=== PATIENT | female | born 1930 | race Caucasian/White ===

== ENCOUNTER 2017-09-20 16:29 | Inpatient (IN) | payer OTHER ==
[~2017-09-20] VITALS: Ht 157.5 cm; Wt 71.7 kg
[~2017-09-20 16:29] MED LIST: ASPI-1169 PO; ATOR20TA PO; BENA10TA PO; CARB1TAB53 PO; DILT180C66 PO; DIVA125T2 PO; ERGO500014 PO; LEVO25TA11 PO; LEVO75TA PO; PARO10TA86 PO; SERT100T PO; TOPI25CA PO
--- NOTE | 2017-09-20 16:30 | NUR ---
KATE FROM [facility] ALTERED MENTAL STATUS AND SEVERE RESPIRATORY DISTRESS. PATIENT RECEIVED ON NON REBREATHER SATING 95%. PATIENT'S SKIN IS WARM TO TOUCH AND NON DIAPHORETIC. FEBRILE. CONNECTED PATIENT TO TELE MONITOR. RAY AT BEDSIDE
--- NOTE | 2017-09-20 16:32 | NUR ---
PATIENT WITH AUDIBLE RALES AND CRACKLES. MD ASHER
--- NOTE | 2017-09-20 16:35 | NUR ---
PER REPORT PT IS DNR/DNI RT AT FOR BIPAP
--- NOTE | 2017-09-20 16:41 | NUR ---
IV ACCESSED TO RIGHT WRIST 20. BLOOD SAMPLE SENT TO LAB
[2017-09-20 16:43] VITALS: BP 97/72
[2017-09-20 17:00] LABS: BASOPHILS % (AUTO) 0.3 % (0.0-2.0); EOSINOPHILS % (AUTO) 0.4 % (0.0-6.0); HEMATOCRIT 42 % (33-45); HEMOGLOBIN 14.1 g/dL (11.5-14.8); LYMPHOCYTES # (AUTO) 1.4 /CMM (0.8-4.8); LYMPHOCYTES % (AUTO) 8.8 % (20.0-44.0); MEAN CORPUSCULAR HGB CONC 33 g/dl (31.0-36.0); MEAN CORPUSCULAR VOLUME 89 fL (82-100); MONOCYTES # (AUTO) 0.9 /CMM (0.1-1.30); MONOCYTES % (AUTO) 5.5 % (2.0-12.0); NEUTROPHILS # (AUTO) 13.9 /CMM (1.8-8.9); PLATELET COUNT (AUTO) 168 /CMM (150-450); RDW COEFFICIENT OF VARIATION 14.2 (11.5-15.0); RED BLOOD CELL COUNT(AUTO) 4.75 MIL/uL (4.0-5.2); WHITE BLOOD COUNT (AUTO) 16.3 K/uL (4.3-11.0)
[2017-09-20] MEDS ORDERED: PIPERACILLIN /TAZOBACTAM 3.375 G in IV D5W 50 ML IV ONE (17:00)
[2017-09-20] MEDS ORDERED: IV NS 0.9% 1,000 ML BAG IV ONE (17:00)
[2017-09-20] MEDS ORDERED: VANCOMYCIN 1 GM in IV D5W 250 ML IV ONE (17:00)
[2017-09-20 17:18] LABS: INR 0.9 (0.85-1.15)
[2017-09-20 17:20] LABS: TROPONIN I 0.754 ng/mL (0.00-0.056)
[2017-09-20] MEDS ORDERED: ASPIRIN 300 MG/SUPP.RECT RC ONE ×2 (17:30→17:40)
[2017-09-20 17:33] LABS: BACTERIA,URINE 4+ /HPF (None Seen); SQUAMOUS EPITHELIAL CELL,UR None Seen /HPF (None Seen)
[2017-09-20 17:52] LABS: APPEARANCE,URINE CLOUDY (CLEAR); COLOR,URINE YELLOW (YELLOW); PH,URINE 8.5 (5.0-8.0); PROTEIN,URINE 3+ mg/dl (NEGATIVE); UGLUCOSE NEGATIVE (NEGATIVE)
[2017-09-20 17:53] LABS: BILIRUBIN,URINE NEGATIVE (NEGATIVE); KETONES,URINE NEGATIVE (NEGATIVE); NITRITE, URINE NEGATIVE (NEGATIVE); UROBILINOGEN,URINE 0.2 EU/dL (0.2)
[2017-09-20] MEDS ORDERED: DILT90TA2 PO (17:53)
[2017-09-20] MEDS ORDERED: DOCU-141 PO (17:53)
[2017-09-20] MEDS ORDERED: CARB-93 PO (17:53)
[2017-09-20] MEDS ORDERED: CHOL200026 PO (17:53)
[2017-09-20] MEDS ORDERED: RIVA10TA PO (17:53)
[2017-09-20] MEDS ORDERED: LEVE500T9 PO (17:53)
[2017-09-20 17:54] LABS: BLOOD, URINE TRACE Ery/uL (NEGATIVE); LEUKOCYTE ESTERASE ,URINE 1+ (NEGATIVE)
[2017-09-20 18:03] LABS: ALANINE AMINOTRANSFERASE 17 U/L (12-78); ALKALINE PHOSPHATASE 74 U/L (46-116); ASPARTATE AMINOTRANSFERASE 24 U/L (15-37); BILIRUBIN,DIRECT 0.1 mg/dL (0.0-0.2); BILIRUBIN,TOTAL 0.4 mg/dL (0.2-1.0); CALCIUM, SERUM 9.4 mg/dL (8.5-10.1); CARBON DIOXIDE 24 mmol/L (21-32); CHLORIDE 108 mmol/L (98-107); CREATININE 1.2 mg/dL (0.6-1.3); GLUCOSE 225 mg/dL (74-106); POTASSIUM 4.3 mmol/L (3.5-5.1); SODIUM SERUM 141 mmol/L (136-145); TOTAL PROTEIN, SERUM 7.9 g/dL (6.4-8.2); UREA NITROGEN, BLOOD 45 mg/dL (7-18)
--- NOTE | 2017-09-20 18:48 | NUR ---
PATIENT RESTING. REMAINS ON BIPAP. VSS
--- NOTE | 2017-09-20 19:12 | NUR ---
REPORT GIVEN TO TEOFILO WALKER FOR ALETHA
--- NOTE | 2017-09-20 19:19 | NUR ---
PAGED EPIC FOR PANEL
[2017-09-20] MEDS ORDERED: MAG HYDROX/AL HYDROX/SIMETH 30 ML UDC PO PRN (20:00)
[2017-09-20] MEDS ORDERED: ONDANSETRON HCL/PF 4 MG/2 ML VIAL IVP PRN (20:00)
[2017-09-20] MEDS ORDERED: MAGNESIUM HYDROXIDE 30 ML UDC PO PRN (20:00)
[2017-09-20] MEDS ORDERED: Z GUARD REMEDY 2 OZ OINT TP PRN (20:00)
[2017-09-20 20:01] VITALS: BP 89/60
--- NOTE | 2017-09-20 20:49 | NUR ---
marycruz bed 114
[2017-09-20 21:45] VITALS: BP 107/87
[2017-09-20] MEDS: ENOXAPARIN SODIUM 30 MG/0.3 ML DISP.SYRIN SQ SCH (21:58)
--- NOTE | 2017-09-20 22:30 | NUR ---
GILDA RN NOTE ADMITTED PT FROM ER WITH THE DX OF SEPSIS. PT IS DNR/DNI PER MD. AWAKE BUT CONFUSED. ON BIPAP 15/5 RATE 14. TOLERATING WELL. ON TELE A FIB WITH BBB HR 109. NO DISTRESS OR DISCOMFORT NOTED. NO S/S OF PAIN NOTED. LUNGS SOUND ON AUSCULTATION CRACKLES ON ALL MORENO. BM X 1, INCONTINENCE CARE GIVEN. SKIN ASSESSMENT DONE, PICTURES TAKEN AND PLACE THEM IN THE CHART. ADMITTING ORDERS CHECKED AND CARRIED OUT. BED BATH GIVEN. SIDE RAILS UP X 3 AND CALL LIGHT WITHIN REACH. CONTINUE TO MONITOR HER.
--- NOTE | 2017-09-20 22:35 | NUR ---
GILDA RN NOTE TROP LEVEL 0.592 WHICH IS TRENDING DOWN. MD AWARE. CONTINUE TO MONITOR HER.
[2017-09-20 23:19] VITALS: BP 97/72
[2017-09-20] MEDS ORDERED: PIPERACILLIN /TAZOBACTAM 2.25 G VIAL IV ONE (23:40)
[2017-09-20] MEDS: PIPERACILLIN /TAZOBACTAM 2.255 G in IV D5W 50 ML IV SCH (23:45)
--- NOTE | 2017-09-20 23:46 | NUR ---
GILDA RN NOTE JAIR CHARGE NURSE VERIFIED WITH PHARMACY TO GIVE ZOSYN 2.25 G AT THIS TIME.
[2017-09-21] MEDS ORDERED: FUROSEMIDE 40 MG/4 ML VIAL IV ONE (01:00)
--- NOTE | 2017-09-21 01:21 | NUR ---
GILDA RN NOTE PT IN BED SLEEPING ON AND OFF. LASIX 20 MG IVP GIVEN ORDERED. CONTINUE TO MONITOR VSS. O2 SAT 100, TOLERATING BIPAP.
[2017-09-21] MEDS: HYDROCODONE/APAP 5/325MG 1 EACH TABLET PO PRN (01:45)
[2017-09-21] MEDS ORDERED: PIPERACILLIN /TAZOBACTAM 2.25 G VIAL IV ONE (05:08)
[2017-09-21] MEDS: PIPERACILLIN /TAZOBACTAM 2.255 G in IV D5W 50 ML IV SCH (05:21)
--- NOTE | 2017-09-21 05:30 | NUR ---
GILDA RN NOTE PT NOTED BECOME RESTLESS, MOVING UPPER EXT'S. TOLERATING BIPAP. PT UNABLE TO EXPLAIN. HELD HER HANDS. IN FEW MINUTES PT WENT IN DEEP SLEEP. HR CAME DOWN TO 118 FROM 150. CONTINUE TO MONITOR HER.
--- NOTE | 2017-09-21 06:18 | NUR ---
GILDA RN NOTE PT IN BED IN DEEP SLEEP, NO DISTRESS OR DISCOMFORT NOTED. NO S/S OF PAIN NOTED. ON TELE MONITOR A FIB WITH BBB HR 90'S. REPOSITION HER Q2H, KEPT HER DRY AND CLEAN. SIDE RAILS UP X 3 AND CALL LIGHT WITHIN REACH. WILL ENDORSE TO DAY SHIFT NURSE FOR CONTINUE TO CARE.
[2017-09-21 06:23] LABS: BASOPHILS % (AUTO) 0.4 % (0.0-2.0); EOSINOPHILS % (AUTO) 0.5 % (0.0-6.0); HEMATOCRIT 37 % (33-45); HEMOGLOBIN 12.4 g/dL (11.5-14.8); LYMPHOCYTES # (AUTO) 0.9 /CMM (0.8-4.8); MEAN CORPUSCULAR HGB CONC 34 g/dl (31.0-36.0); MEAN CORPUSCULAR VOLUME 90 fL (82-100); MONOCYTES # (AUTO) 0.7 /CMM (0.1-1.30); MONOCYTES % (AUTO) 5.6 % (2.0-12.0); NEUTROPHILS # (AUTO) 11.3 /CMM (1.8-8.9); NEUTROPHILS % (AUTO) 86.5 % (43.0-81.0); PLATELET COUNT (AUTO) 129 /CMM (150-450); RDW COEFFICIENT OF VARIATION 15.1 (11.5-15.0); RED BLOOD CELL COUNT(AUTO) 4.09 MIL/uL (4.0-5.2)
[2017-09-21 06:59] LABS: CALCIUM, SERUM 8.4 mg/dL (8.5-10.1); CARBON DIOXIDE 23 mmol/L (21-32); CHLORIDE 112 mmol/L (98-107); CREATININE 0.9 mg/dL (0.6-1.3); GLUCOSE 185 mg/dL (74-106); MAGNESIUM 1.9 mg/dL (1.8-2.4); PHOSPHORUS 3.8 mg/dL (2.5-4.9); POTASSIUM 3.4 mmol/L (3.5-5.1); SODIUM SERUM 145 mmol/L (136-145); UREA NITROGEN, BLOOD 39 mg/dL (7-18)
[2017-09-21] MEDS ORDERED: FEE PK DOSING 1 MIN EA MC ONE (07:04)
[2017-09-21] MEDS: LEVOTHYROXINE SODIUM 75 MCG TABLET PO SCH (07:30)
--- NOTE | 2017-09-21 07:52 | NUR ---
GILDA/RN INITIAL NOTES,AM RECEIVED REPORT FROM NIGHT NURSE. PT ON BIPAP WITH SETTINGS ORDERED BY MD. PT RESTING COMFORTABLY WITH NO ACUTE DISTRESS. PT OPENS EYES, VERY LETHARGIC, FOLLOWS SIMPLE COMMANDS, CONFUSED. PT ON TELE, A. FIB WITH BBB. PIV PATENT AND INTACT, NO S/S OF INFECTION OR INFILTRATION NOTED, WILL CONTINUE TO MONITOR. ALL NEEDS WILL BE ATTENDED TO, SAFETY MEASURES TAKEN, BED IN LOW POSITION, SIDE RAILS UP, CALL LIGHT WITHIN REACH. WILL CONTINUE CARE.
[2017-09-21 08:00] VITALS: BP_SYST 102; BP_SYST 116; BP_DIAS 53; BP_DIAS 63
[2017-09-21] MEDS: CHOLECALCIFEROL 1,000 UNIT TABLET (VIT D3) PO SCH (09:00)
[2017-09-21] MEDS: ASPIRIN 325 MG TABLET PO SCH (09:00)
[2017-09-21] MEDS: DOCUSATE SODIUM 100 MG CAPSULE PO SCH ×2 (09:00→16:37)
[2017-09-21] MEDS: TOPIRAMATE 25 MG TABLET PO SCH ×2 (09:00→17:33)
[2017-09-21] MEDS: CARBIDOPA/LEVODOPA 25/100 MG 1 UDTAB PO SCH ×2 (09:00→17:33)
[2017-09-21] MEDS: LEVETIRACETAM (250 MG) 250 MG TABLET PO SCH ×2 (09:00→17:33)
[2017-09-21 09:32] LABS: ABG OXYGEN SATURATION 98.6 % (92.0-98.5); ABG PCO2 44.2 mmHg (35.0-45.0); ABG PH 7.362 (7.350-7.450); ABG PO2 185.9 mmHg (75.0-100.0); AaDO2 193.3 mmHg; COHb 0.6 % (0.5-1.5); MetHb 0.2 % (0.0-1.5); O2Hb 97.8 % (94.0-97.0); SITE, ABG Left Radial; VENT MODE, BG ST 15/5 BUR14
--- NOTE | 2017-09-21 10:50 | NUR ---
RT PT PLACED ON 4L NC POST ABG. RN ARPI NOTIFIED. NO SOB NOTED. WILL CONTINUE TO MONITOR T/O SHIFT
[2017-09-21] MEDS: DILTIAZEM HCL 30 MG TABLET PO SCH (11:00)
--- NOTE | 2017-09-21 11:00 | NUR ---
ICU/RN: PER MD ABG DONE, PT TAKEN OFF BIPAP, ON NASAL CANULA, 4 LITERS TOLERATING WELL, NO DISTRESS, MAINTAINING 02 SAT >95%.
[2017-09-21] MEDS: POTASSIUM CL. PREMIX PERIPHER. 50 ML IV SCH ×2 (11:26→12:25)
[2017-09-21 12:00] VITALS: BP 109/64
[2017-09-21] MEDS: PIPERACILLIN /TAZOBACTAM 3.375 G in IV D5W 50 ML IV SCH ×3 (12:19→23:38)
[2017-09-21] MEDS: VANCOMYCIN 1 GM in IV D5W 250 ML IV SCH (12:56)
--- NOTE | 2017-09-21 14:00 | NUR ---
ICU/RN: PER MD ORDERS GUIDO INSERTED FOR STRICT INTAKE AND OUTPUT
[2017-09-21] MEDS: IPRATROPIUM NEB FS 0.5 MG/2.5 ML AMPUL.NEB NEB SCH ×4 (14:47→23:57)
[2017-09-21] MEDS: ACETYLCYSTEINE 10% SOLN 400 MG/4 ML VIAL NEB SCH ×2 (14:47→23:57)
[2017-09-21] MEDS: ALBUTEROL HALF STRENGTH 1.25 MG/3 ML VIAL.NEB NEB SCH ×4 (14:47→23:57)
[2017-09-21 16:00] VITALS: BP 108/85
[2017-09-21] MEDS: RIVAROXABAN 15 MG TABLET PO SCH (17:33)
[2017-09-21] MEDS: LACTOBACILLUS RHAMNOSUS GG 1 EACH CAP.SPRINK PO SCH (17:33)
--- NOTE | 2017-09-21 19:00 | NUR ---
ICU/RN ENDING NOTES,AM REPORT ENDORSED TO NIGHT NURSE FOR CONTINUATION OF CARE. PT ON NASAL CANULA, 4LITERS, NO DISTRESS NOTED. ON TELE, A.FIB WITH BBB. ALL NEEDS ATTENDED TO, SAFETY MEASURES TAKEN, BED BATH GIVEN, LINENS CHANGED. NATHALIE CONTINUE CARE
[2017-09-21 20:00] VITALS: BP 106/52
--- NOTE | 2017-09-21 20:00 | NUR ---
GILDA RN NOTE PT IN BED LETHARGIC, AROUSABLE TO TACTILE STIMULATION AND LITTLE PAINFUL STIMULATION. NO SOB, NO DISTRESS OR DISCOMFORT NOTED. NO S/S OF PAIN NOTED. ON O2 4L VIA N/C 99% O2 SAT. ON TELE MONITOR A FIB. WITH BBB HR 90'S. REPOSITION HER Q2H. KEPT HER DRY AND CLEAN. ALL NEEDS ATTENDED. SIDE RAILS UP X 3 AND CALL LIGHT WITHIN REACH. CONTINUE TO MONITOR HER.
[2017-09-21] MEDS: ENOXAPARIN SODIUM 30 MG/0.3 ML DISP.SYRIN SQ SCH (21:47)
[2017-09-22] VITALS (7 sets, daily range): BP systolic 98–124; BP diastolic 52–71
[2017-09-22] MEDS: HYDROCODONE/APAP 5/325MG 1 EACH TABLET PO PRN (00:35)
--- NOTE | 2017-09-22 00:35 | NUR ---
GILDA RN NOTE PT BECOME RESTLESS, MINOR GRIMICE ON HER FACE NOTED. NORCO 5/325 MG PO GIVEN. CONTINUE TO MONITOR HER.
--- NOTE | 2017-09-22 01:35 | NUR ---
GILDA RN NOTE PAIN SUBSIDED. PT FALL ASLEEP, NO FURTHER DISTRESS NOTED.
[2017-09-22] MEDS: IPRATROPIUM NEB FS 0.5 MG/2.5 ML AMPUL.NEB NEB SCH ×6 (04:07→23:47)
[2017-09-22] MEDS: ALBUTEROL HALF STRENGTH 1.25 MG/3 ML VIAL.NEB NEB SCH ×6 (04:08→23:47)
[2017-09-22] MEDS: PIPERACILLIN /TAZOBACTAM 3.375 G in IV D5W 50 ML IV SCH ×4 (05:29→23:48)
[2017-09-22] MEDS: VANCOMYCIN 1 GM in IV D5W 250 ML IV SCH (06:13)
--- NOTE | 2017-09-22 06:26 | NUR ---
GILDA RN NOTE PT IN BED ASLEEP, AROUSABLE. NO DISTRESS OR DISCOMFORT NOTED. NO S/S OF PAIN NOTED. ON TELE A FIB WITH BBB HR 100.. SIDE RAILS UP X 3 AND CALL LIGHT WITHIN REACH. WILL ENDORSE TO DAY SHIFT NURSE FOR CONTINUE TO CARE.
[2017-09-22 06:29] LABS: ALANINE AMINOTRANSFERASE 10 U/L (12-78); ALBUMIN 2.4 g/dL (3.4-5.0); ALKALINE PHOSPHATASE 60 U/L (46-116); ASPARTATE AMINOTRANSFERASE 17 U/L (15-37); BILIRUBIN,TOTAL 0.6 mg/dL (0.2-1.0); CARBON DIOXIDE 28 mmol/L (21-32); CHLORIDE 114 mmol/L (98-107); CREATININE 0.7 mg/dL (0.6-1.3); GLUCOSE 136 mg/dL (74-106); PHOSPHORUS 2.9 mg/dL (2.5-4.9); POTASSIUM 3.6 mmol/L (3.5-5.1); SODIUM SERUM 148 mmol/L (136-145); TOTAL PROTEIN, SERUM 6.6 g/dL (6.4-8.2); UREA NITROGEN, BLOOD 30 mg/dL (7-18)
[2017-09-22 06:37] LABS: BASOPHILS % (AUTO) 0.1 % (0.0-2.0); HEMATOCRIT 36 % (33-45); HEMOGLOBIN 11.9 g/dL (11.5-14.8); LYMPHOCYTES # (AUTO) 1.3 /CMM (0.8-4.8); LYMPHOCYTES % (AUTO) 11.2 % (20.0-44.0); MEAN CORPUSCULAR HGB CONC 33 g/dl (31.0-36.0); MEAN CORPUSCULAR VOLUME 91 fL (82-100); MONOCYTES # (AUTO) 0.6 /CMM (0.1-1.30); MONOCYTES % (AUTO) 5.3 % (2.0-12.0); NEUTROPHILS # (AUTO) 9.3 /CMM (1.8-8.9); NEUTROPHILS % (AUTO) 82.4 % (43.0-81.0); PLATELET COUNT (AUTO) 124 /CMM (150-450); RDW COEFFICIENT OF VARIATION 15.2 (11.5-15.0); RED BLOOD CELL COUNT(AUTO) 3.96 MIL/uL (4.0-5.2); WHITE BLOOD COUNT (AUTO) 11.3 K/uL (4.3-11.0)
[2017-09-22 06:52] LABS: TROPONIN I 0.156 ng/mL (0.00-0.056)
--- NOTE | 2017-09-22 07:00 | NUR ---
GILDA RN NOTE NOTED LFA IV SITE BECOME INFILTRATED, AND SWOLLEN. DC'D THE LINE AND SECURED THE SITE WITH 2X2 GAUZE, NO BLEEDING NOTED. KEPT THE ARM ELEVATED AND ICE PACK APPLIED. NEW LINE INSERTED IN RFA #22 G WITH GOOD BACK FLOW OF BLOOD. RESUMED THE VANCO IV ATB, NO S/S OF INFILTRATION NOTED.
--- NOTE | 2017-09-22 07:15 | NUR ---
PATIENT S/E AT BEDSIDE. AWAKE , SPEECH UNCLEAR. NO SIGNS OF DISTRESS NOTED.
[2017-09-22] MEDS: LEVOTHYROXINE SODIUM 75 MCG TABLET PO SCH (07:48)
[2017-09-22] MEDS: ACETYLCYSTEINE 10% SOLN 400 MG/4 ML VIAL NEB SCH ×3 (08:20→23:46)
[2017-09-22] MEDS: CHOLECALCIFEROL 1,000 UNIT TABLET (VIT D3) PO SCH (08:43)
[2017-09-22] MEDS: LACTOBACILLUS RHAMNOSUS GG 1 EACH CAP.SPRINK PO SCH ×2 (08:43→16:34)
[2017-09-22] MEDS: TOPIRAMATE 25 MG TABLET PO SCH ×2 (08:43→16:34)
[2017-09-22] MEDS: DILTIAZEM HCL 30 MG TABLET PO SCH ×3 (08:43→17:05)
[2017-09-22] MEDS: ASPIRIN 325 MG TABLET PO SCH (08:44)
[2017-09-22] MEDS: LEVETIRACETAM (250 MG) 250 MG TABLET PO SCH ×2 (08:44→16:34)
[2017-09-22] MEDS: CARBIDOPA/LEVODOPA 25/100 MG 1 UDTAB PO SCH ×2 (08:44→16:34)
[2017-09-22] MEDS: DOCUSATE SODIUM 100 MG CAPSULE PO SCH ×2 (08:44→16:34)
--- NOTE | 2017-09-22 09:00 | NUR ---
S/E BY DR. BELTRAN TO DOWNGRADE TO TELE PER MD. ABLE TO CONSUME BREAKFAST WITH ASSISTANCE. NO COUGHING. NO SIGNS OF ASPIRATION. DUE MEDS GIVEN, CRUSHED IN APPLE SAUCE.
[2017-09-22] MEDS: RIVAROXABAN 15 MG TABLET PO SCH (17:06)
--- NOTE | 2017-09-22 18:15 | NUR ---
NO SIGNIFICANT CHANGE IN STATUS SINCE INITIAL ASSESS. REMAINS ON O2 AT 3L N/C-SPO2>93%. KEPT HOB ELEVATED. VSS. AFEBRILE THE WHOLE SHIFT.
[2017-09-22] MEDS: ENOXAPARIN SODIUM 30 MG/0.3 ML DISP.SYRIN SQ SCH (20:41)
[2017-09-23] VITALS: BP 124/71
[2017-09-23] MEDS: VANCOMYCIN 1 GM in IV D5W 250 ML IV SCH ×2 (00:33→18:52)
[2017-09-23] MEDS: DILTIAZEM HCL 30 MG TABLET PO SCH ×4 (00:34→21:17)
[2017-09-23] MEDS: ALBUTEROL HALF STRENGTH 1.25 MG/3 ML VIAL.NEB NEB SCH ×6 (03:24→23:49)
[2017-09-23] MEDS: IPRATROPIUM NEB FS 0.5 MG/2.5 ML AMPUL.NEB NEB SCH ×6 (03:25→23:49)
[2017-09-23 04:00] VITALS: BP 128/68
[2017-09-23] MEDS: PIPERACILLIN /TAZOBACTAM 3.375 G in IV D5W 50 ML IV SCH ×3 (05:13→17:54)
[2017-09-23 06:03] VITALS: BP 128/68
[2017-09-23 07:02] LABS: CALCIUM, SERUM 8.9 mg/dL (8.5-10.1); CARBON DIOXIDE 26 mmol/L (21-32); CHLORIDE 112 mmol/L (98-107); CREATININE 0.9 mg/dL (0.6-1.3); GLUCOSE 184 mg/dL (74-106); SODIUM SERUM 147 mmol/L (136-145); UREA NITROGEN, BLOOD 33 mg/dL (7-18)
--- NOTE | 2017-09-23 07:30 | NUR ---
PT RECEIVED RESTING COMFORTABLY IN BED. NO S/S OR C/O PAIN OR DISTRESS NOTED. SIDE RAILS UP X2, CALL LIGHT LEFT WITHIN REACH. WILL CONTINUE PLAN OF CARE.
[2017-09-23] MEDS: ACETYLCYSTEINE 10% SOLN 400 MG/4 ML VIAL NEB SCH ×3 (08:08→23:49)
[2017-09-23] MEDS: CARBIDOPA/LEVODOPA 25/100 MG 1 UDTAB PO SCH ×2 (09:24→17:56)
[2017-09-23] MEDS: LEVETIRACETAM (250 MG) 250 MG TABLET PO SCH ×2 (09:24→17:56)
[2017-09-23] MEDS: DOCUSATE SODIUM 100 MG CAPSULE PO SCH ×2 (09:24→17:56)
[2017-09-23] MEDS: TOPIRAMATE 25 MG TABLET PO SCH ×2 (09:25→17:56)
[2017-09-23] MEDS: LACTOBACILLUS RHAMNOSUS GG 1 EACH CAP.SPRINK PO SCH ×2 (09:25→17:56)
[2017-09-23] MEDS: ASPIRIN 325 MG TABLET PO SCH (09:25)
[2017-09-23] MEDS: CHOLECALCIFEROL 1,000 UNIT TABLET (VIT D3) PO SCH (09:25)
[2017-09-23] MEDS: LEVOTHYROXINE SODIUM 75 MCG TABLET PO SCH (09:25)
[2017-09-23 11:32] LABS: BASOPHILS # (AUTO) 0.1 /CMM (0.0-0.2); BASOPHILS % (AUTO) 0.5 % (0.0-2.0); EOSINOPHILS % (AUTO) 0.3 % (0.0-6.0); HEMATOCRIT 36 % (33-45); HEMOGLOBIN 11.9 g/dL (11.5-14.8); LYMPHOCYTES # (AUTO) 0.7 /CMM (0.8-4.8); LYMPHOCYTES % (AUTO) 6.1 % (20.0-44.0); MEAN CORPUSCULAR HGB CONC 33 g/dl (31.0-36.0); MEAN CORPUSCULAR VOLUME 91 fL (82-100); MONOCYTES # (AUTO) 0.7 /CMM (0.1-1.30); NEUTROPHILS # (AUTO) 10.5 /CMM (1.8-8.9); NEUTROPHILS % (AUTO) 87.1 % (43.0-81.0); PLATELET COUNT (AUTO) 155 /CMM (150-450); RDW COEFFICIENT OF VARIATION 14.9 (11.5-15.0); RED BLOOD CELL COUNT(AUTO) 3.99 MIL/uL (4.0-5.2)
[2017-09-23] MEDS: DIGOXIN INJ 0.5 MG/2 ML AMPUL IV SCH ×2 (12:09→19:30)
[2017-09-23] MEDS ORDERED: DIGOXIN 0.25 MG TABLET PO SCH (13:00)
[2017-09-23 20:00] VITALS: BP 113/74
[2017-09-23] MEDS: RIVAROXABAN 15 MG TABLET PO SCH (21:17)
--- NOTE | 2017-09-23 21:18 | NUR ---
MED NOTE: 1800 MEDS HELD. PT UNABLE TO SWALLOW AT THIS TIME DUE TO AMS AND ASPIRATION RISK. WILL CONTINUE TO MONITOR. Addendum: 09/24/17 at 0045 by STERLING TILLEY LVN 0000 PO MEDS HELD. PT IS HIGH ASPIRATION RISK AND NOT FOLLOWING COMMANDS TO SWALLOW.
[2017-09-23] MEDS: ENOXAPARIN SODIUM 30 MG/0.3 ML DISP.SYRIN SQ SCH (21:22)
[2017-09-24] VITALS: BP 113/90
[2017-09-24] MEDS: PIPERACILLIN /TAZOBACTAM 3.375 G in IV D5W 50 ML IV SCH ×4 (00:54→17:25)
[2017-09-24] MEDS: DIGOXIN INJ 0.5 MG/2 ML AMPUL IV SCH ×2 (00:56→13:10)
[2017-09-24 04:00] VITALS: BP 130/70
[2017-09-24] MEDS: IPRATROPIUM NEB FS 0.5 MG/2.5 ML AMPUL.NEB NEB SCH ×6 (04:13→23:58)
[2017-09-24] MEDS: ALBUTEROL HALF STRENGTH 1.25 MG/3 ML VIAL.NEB NEB SCH ×6 (04:13→23:58)
[2017-09-24] MEDS: DILTIAZEM HCL 30 MG TABLET PO SCH ×4 (06:00→19:09)
[2017-09-24 06:57] LABS: CALCIUM, SERUM 9.1 mg/dL (8.5-10.1); CARBON DIOXIDE 26 mmol/L (21-32); CHLORIDE 112 mmol/L (98-107); CREATININE 0.8 mg/dL (0.6-1.3); GLUCOSE 172 mg/dL (74-106); POTASSIUM 3.8 mmol/L (3.5-5.1); SODIUM SERUM 147 mmol/L (136-145); UREA NITROGEN, BLOOD 32 mg/dL (7-18)
[2017-09-24] MEDS: ACETYLCYSTEINE 10% SOLN 400 MG/4 ML VIAL NEB SCH ×3 (07:21→23:58)
--- NOTE | 2017-09-24 07:30 | NUR ---
IT APPLICATIONS ANALYST NOTE: RECEIVED PATIENT IN BED, ASLEEP, BUT AROUSABLE WITH TACTILE STIMULATION. ON O2 3L/MIN VIA NC AND SATURATING 97%. TOLERATING WELL. (R) FOREARM IV LINE NOTED PATENT AND INTACT. PER NURSE REPORT FROM WORK COUNSELOR, PATIENT WAS NOTED WITH DIFFICULTY SWALLOWING SINCE YESTERDAY MORNING. ON PSYCHOLOGICAL EXAMINER, A. FIB HR= 115. PAGED DR. DAYNA ORNELAS ABOUT THIS CONCERN AND AWAITING FOR MD'S REPLY. WILL OBSERVE THE PATIENT'S SWALLOWING ABILITY DURING BREAKFAST. HOB ELEVATED. BED ALARMED AND LOCKED AT ALL TIMES. CALL LIGHT WITHIN REACH. NEEDS ANTICIPATED.
[2017-09-24 08:00] VITALS: BP 126/67
[2017-09-24] MEDS: LEVOTHYROXINE SODIUM 75 MCG TABLET PO SCH (08:59)
[2017-09-24] MEDS: DOCUSATE SODIUM 100 MG CAPSULE PO SCH ×2 (09:00→16:44)
[2017-09-24] MEDS: CHOLECALCIFEROL 1,000 UNIT TABLET (VIT D3) PO SCH (09:00)
[2017-09-24] MEDS: CARBIDOPA/LEVODOPA 25/100 MG 1 UDTAB PO SCH ×2 (09:00→16:44)
[2017-09-24] MEDS: ASPIRIN 325 MG TABLET PO SCH (09:00)
[2017-09-24] MEDS: LACTOBACILLUS RHAMNOSUS GG 1 EACH CAP.SPRINK PO SCH ×2 (09:00→16:44)
[2017-09-24] MEDS: LEVETIRACETAM (250 MG) 250 MG TABLET PO SCH ×2 (09:00→16:44)
[2017-09-24] MEDS: TOPIRAMATE 25 MG TABLET PO SCH ×2 (09:00→16:44)
--- NOTE | 2017-09-24 09:00 | NUR ---
CHICKEN HANGER NOTE: PATIENT WAS NOTED HAVING DIFFICULTY CLEARING HER MOUTH WITH APPLESAUCE. PATIENT WAS BARELY CLEARING HER MOUTH WITH THE APPLESAUCE. SUCTIONED AND CLEANED THE PATIENT'S MOUTH. PAGED DR. DAYNA ORNELAS FOR A POSSIBLE SWALLOW EVALUATION AND AWAITING FOR MD'S RESPONSE.
--- NOTE | 2017-09-24 10:17 | NUR ---
CONTINUOUS IMPROVEMENT DIRECTOR NOTE: RECEIVED A RESPONSE FROM DR. DAYNA ORNELAS AND HE ORDERED SWALLOW EVALUATION FOR THE PATIENT. ORDER, NOTED AND ACKNOWLEDGED.
[2017-09-24 11:01] LABS: THYROID STIMULATING HORMONE 2.316 uIU/mL (0.358-3.74)
--- NOTE | 2017-09-24 11:17 | NUR ---
AGER TENDER NOTE: PATIENT WAS EVALUATED BY THE SPEECH THERAPIST AND ACCORDING TO HER, PATIENT WAS NOT SAFE TO SWALLOW. SHE TRIED TO GIVE APPLESAUCE AND NECTAR THICKENED LIQUID AND THE PATIENT WAS NOT SWALLOWING AT ALL. PATIENT WAS AWAKE, BUT SHE COUGHS EASILY WITH THIN LIQUID WELL. PAGED DR. ORNELAS RE: THE SPEECH THERAPIST SWALLOW EVALUATION AND AWAITING FOR MD'S RESPONSE.
--- NOTE | 2017-09-24 11:32 | NUR ---
RT NOTE: PATIENT HAS INCREASED WOB. RESPIRATORY TREATMENT GIVEN. NURSE(DORIE) AND DR.STACY ASHER.
[2017-09-24] MEDS: VANCOMYCIN 1 GM in IV D5W 250 ML IV SCH (11:35)
[2017-09-24 13:00] VITALS: BP 115/55
[2017-09-24 13:22] LABS: ABG BASE EXCESS 0.9 mmol/L; ABG OXYGEN SATURATION 97.7 % (92.0-98.5); ABG PCO2 42.3 mmHg (35.0-45.0); ABG PH 7.403 (7.350-7.450); ABG PO2 110.3 mmHg (75.0-100.0); AaDO2 68.4 mmHg; COHb 0.9 % (0.5-1.5); MetHb 0.3 % (0.0-1.5); O2Hb 96.5 % (94.0-97.0); SITE, ABG Right Radial; VENT MODE, BG NASAL CANNULA
--- NOTE | 2017-09-24 13:30 | NUR ---
RT NOTE: LATE ENTRY- ABG DONE AND REPORTED TO NURSE(DORIE).
--- NOTE | 2017-09-24 13:38 | NUR ---
LOZENGE MAKER HELPER NOTE: REPORTED TO DR. ORNELAS AND DR. MILLER RE: THE PATIENT'S STAT ABG RESULT. MDs WITH NO NEW ORDER.
[2017-09-24 16:00] VITALS: BP 132/74
--- NOTE | 2017-09-24 16:45 | NUR ---
OIL CHANGER NOTE: HELD ALL PO MEDICATIONS DUE TO PATIENT UNABLE TO SWALLOW HER MEDICATIONS. DR. DAYNA ORNELAS MADE AWARE.
[2017-09-24] MEDS ORDERED: IV D5/0.45 NACL 1,000 ML IV PRN (17:00)
--- NOTE | 2017-09-24 18:06 | NUR ---
HIGH SCHOOL SOCIAL SCIENCE TEACHER NOTE: PLACED A NGT ON THE PATIENT'S (L) NOSTRIL PER DR. ORNELAS'S ORDER. ORDERD A STAT CHEST X-RAY FOR THE NGT PLACEMENT VERIFICATION.
[2017-09-24] MEDS: RIVAROXABAN 15 MG TABLET PO SCH (19:08)
--- NOTE | 2017-09-24 19:12 | NUR ---
CIGARETTE MACHINES MECHANIC NOTE: INFORMED DR. DAYNA ORNELAS RE: THE CHEST X-RAY RESULT S/P NGT PLACEMENT. MD WAS OK TO GIVE MEDS THRU NGT. PATIENT CURRENTLY IN BED, ASLEEP BUT AROUSABLE WITH TOUCH. ON STABLE CONDITION. NGT PLACED ON (L) NOSTRIL AND HIDE THE LINE TO PREVENT PATIENT FROM PULLING IT. PATIENT TOLERATED IT. REPORT GIVEN TO PM SHIFT NURSE FOR CONTINUITY OF CARE.
[2017-09-24 20:00] VITALS: BP 138/66
[2017-09-24] MEDS: ENOXAPARIN SODIUM 30 MG/0.3 ML DISP.SYRIN SQ SCH (21:04)
[2017-09-25] VITALS: BP 145/70
[2017-09-25] MEDS: PIPERACILLIN /TAZOBACTAM 3.375 G in IV D5W 50 ML IV SCH ×5 (00:17→23:50)
[2017-09-25] MEDS: DILTIAZEM HCL 30 MG TABLET PO SCH ×5 (01:08→23:57)
[2017-09-25] MEDS: ALBUTEROL HALF STRENGTH 1.25 MG/3 ML VIAL.NEB NEB SCH ×6 (03:11→22:42)
[2017-09-25] MEDS: IPRATROPIUM NEB FS 0.5 MG/2.5 ML AMPUL.NEB NEB SCH ×6 (03:11→22:42)
[2017-09-25 04:00] VITALS: BP 133/69
[2017-09-25] MEDS: VANCOMYCIN 1 GM in IV D5W 250 ML IV SCH ×2 (05:36→23:48)
[2017-09-25 07:14] LABS: CALCIUM, SERUM 9.2 mg/dL (8.5-10.1); CARBON DIOXIDE 28 mmol/L (21-32); CHLORIDE 113 mmol/L (98-107); CREATININE 0.9 mg/dL (0.6-1.3); GLUCOSE 187 mg/dL (74-106); POTASSIUM 3.2 mmol/L (3.5-5.1); SODIUM SERUM 150 mmol/L (136-145); UREA NITROGEN, BLOOD 31 mg/dL (7-18)
[2017-09-25] MEDS: ACETYLCYSTEINE 10% SOLN 400 MG/4 ML VIAL NEB SCH ×3 (07:27→22:42)
--- NOTE | 2017-09-25 07:30 | NUR ---
CARTOONIST SPECIAL EFFECTS INITIAL NOTES RECEIVED PATIENT IN BED, ASLEEP BUT AROUSABLE, ON NC 3L 94% O2SAT, NO DISTRESS NOTED, NGT IN LEFT NARE FOR USE OF MEDICATION, ON TELE MONITORING AFIB 85 HR, IV R FA 22 G, CLEAN AND PATENT, BED IN LOW AND LOCKED POSITION CALL LIGHT WITHIN REACH WILL CONTINUE TO MONITOR.
[2017-09-25 08:00] VITALS: BP 110/66
[2017-09-25] MEDS ORDERED: POTASSIUM CHLORIDE 20 MEQ TAB.PRT.SR PO SCH (09:00)
[2017-09-25] MEDS ORDERED: POTASSIUM CHLORIDE 20 MEQ POWDER PACKET GT ONE (09:30)
[2017-09-25] MEDS: ASPIRIN 325 MG TABLET PO SCH (09:33)
[2017-09-25] MEDS: TOPIRAMATE 25 MG TABLET PO SCH ×2 (09:33→17:20)
[2017-09-25] MEDS: CHOLECALCIFEROL 1,000 UNIT TABLET (VIT D3) PO SCH (09:33)
[2017-09-25] MEDS: LEVETIRACETAM (250 MG) 250 MG TABLET PO SCH ×2 (09:34→17:20)
[2017-09-25] MEDS: CARBIDOPA/LEVODOPA 25/100 MG 1 UDTAB PO SCH ×2 (09:34→17:20)
[2017-09-25] MEDS: LACTOBACILLUS RHAMNOSUS GG 1 EACH CAP.SPRINK PO SCH ×2 (09:34→17:20)
[2017-09-25] MEDS: DOCUSATE SODIUM 100 MG CAPSULE PO SCH ×2 (09:34→17:20)
[2017-09-25] MEDS: LEVOTHYROXINE SODIUM 75 MCG TABLET PO SCH (09:34)
[2017-09-25] MEDS ORDERED: JEVITY 1.2 CAL 1,000 ML BOTTLE GT PRN (11:30)
[2017-09-25 12:00] VITALS: BP 118/69
[2017-09-25] MEDS: DIGOXIN INJ 0.5 MG/2 ML AMPUL IV SCH (12:21)
[2017-09-25 16:00] VITALS: BP 106/65
[2017-09-25] MEDS: RIVAROXABAN 15 MG TABLET PO SCH (17:20)
--- NOTE | 2017-09-25 18:59 | NUR ---
WOOD PLANER END NOTES PATIENT RESTING IN BED, ALL NEEDS MET, NO DISTRESS NOTED, PATIENT DEEP SUCTIONED SEVERAL TIMES DURING SHIFT WITH TRUMPET AND RT, LUNGS SOUND CLEARER. WILL ENDORSE TO STRIPPER BLACK AND WHITE FOR CONTINUITY OF CARE.
[2017-09-25 20:00] VITALS: BP 152/72
[2017-09-25] MEDS: ENOXAPARIN SODIUM 30 MG/0.3 ML DISP.SYRIN SQ SCH (20:38)
[2017-09-25] MEDS: ACETAMINOPHEN 325 MG TABLET PO PRN (20:38)
[2017-09-26] VITALS: BP 120/83
[2017-09-26] MEDS: IPRATROPIUM NEB FS 0.5 MG/2.5 ML AMPUL.NEB NEB SCH ×5 (03:27→19:41)
[2017-09-26] MEDS: ALBUTEROL HALF STRENGTH 1.25 MG/3 ML VIAL.NEB NEB SCH ×5 (03:27→19:41)
[2017-09-26 04:00] VITALS: BP 120/62
[2017-09-26] MEDS: DILTIAZEM HCL 30 MG TABLET PO SCH ×3 (06:34→17:11)
[2017-09-26] MEDS: PIPERACILLIN /TAZOBACTAM 3.375 G in IV D5W 50 ML IV SCH ×3 (06:35→17:12)
[2017-09-26 07:20] LABS: EOSINOPHILS % (AUTO) 0.7 % (0.0-6.0); HEMATOCRIT 32 % (33-45); HEMOGLOBIN 10.6 g/dL (11.5-14.8); LYMPHOCYTES # (AUTO) 0.7 /CMM (0.8-4.8); LYMPHOCYTES % (AUTO) 5.6 % (20.0-44.0); MEAN CORPUSCULAR HGB CONC 33 g/dl (31.0-36.0); MEAN CORPUSCULAR VOLUME 93 fL (82-100); MONOCYTES # (AUTO) 0.8 /CMM (0.1-1.30); MONOCYTES % (AUTO) 5.8 % (2.0-12.0); NEUTROPHILS # (AUTO) 11.6 /CMM (1.8-8.9); NEUTROPHILS % (AUTO) 87.9 % (43.0-81.0); PLATELET COUNT (AUTO) 176 /CMM (150-450); RDW COEFFICIENT OF VARIATION 15.2 (11.5-15.0); RED BLOOD CELL COUNT(AUTO) 3.47 MIL/uL (4.0-5.2); WHITE BLOOD COUNT (AUTO) 13.1 K/uL (4.3-11.0)
[2017-09-26 07:28] LABS: MAGNESIUM 2.2 mg/dL (1.8-2.4); PHOSPHORUS 2.4 mg/dL (2.5-4.9)
--- NOTE | 2017-09-26 07:30 | NUR ---
BEVERAGE DISTILLER NOTES: RECEIVED PT IN BED, ASLEEP. LETHARGIC AND CONFUSED, INTERMITTENT EYE OPENING. HAS GUIDO AND DIAPER. NGT IN PLACE, FEEDING RUNNING ORDERED. IV TO RFA 22G, CLEAN AND PATENT. SKIN INTACT WITH SOME DISCOLORATION NOTED. TELE MONITOR, A-FIB CONTROLLED, HR 83. ON O2 4L VIA NC, SATURATION AT 99%. NO APPARENT DISTRESS NOTED. BILATERAL WRIST SOFT RESTRAINTS IN PLACE. CHECKED AND RELEASED PER PROTOCOL. BED IN LOW POSITION, LOCKED. CALL LIGHT WITHIN REACH. WILL CONTINUE TO MONITOR.
[2017-09-26 08:00] VITALS: BP 128/53
[2017-09-26] MEDS: ACETYLCYSTEINE 10% SOLN 400 MG/4 ML VIAL NEB SCH ×2 (08:04→16:01)
[2017-09-26 08:43] LABS: CARBON DIOXIDE 24 mmol/L (21-32); CHLORIDE 113 mmol/L (98-107); POTASSIUM 3.6 mmol/L (3.5-5.1); SODIUM SERUM 150 mmol/L (136-145)
[2017-09-26 08:44] LABS: CALCIUM, SERUM 9.3 mg/dL (8.5-10.1); CREATININE 0.8 mg/dL (0.6-1.3); GLUCOSE 207 mg/dL (74-106); UREA NITROGEN, BLOOD 36 mg/dL (7-18)
[2017-09-26] MEDS: LEVOTHYROXINE SODIUM 75 MCG TABLET PO SCH (08:52)
[2017-09-26] MEDS: CARBIDOPA/LEVODOPA 25/100 MG 1 UDTAB PO SCH ×2 (08:52→17:10)
[2017-09-26] MEDS: CHOLECALCIFEROL 1,000 UNIT TABLET (VIT D3) PO SCH (08:52)
[2017-09-26] MEDS: LACTOBACILLUS RHAMNOSUS GG 1 EACH CAP.SPRINK PO SCH ×2 (08:52→17:10)
[2017-09-26] MEDS: ASPIRIN 325 MG TABLET PO SCH (08:52)
[2017-09-26] MEDS: DOCUSATE SODIUM 100 MG CAPSULE PO SCH ×2 (08:52→17:10)
[2017-09-26] MEDS: LEVETIRACETAM (250 MG) 250 MG TABLET PO SCH ×2 (08:53→17:10)
[2017-09-26] MEDS: TOPIRAMATE 25 MG TABLET PO SCH ×2 (08:54→17:10)
--- NOTE | 2017-09-26 09:00 | NUR ---
LACQUER DIPPING MACHINE OPERATOR NOTES PATIENTS RESIDUAL CHECKED AND COFFEE GROUND EMESIS NOTED IN RESIDUAL, DR MARTINEZ MADE AWARE, STOPPED FEED AND SENT OCCULT OF FLUID TO LAB PER ORDER.
[2017-09-26 12:00] VITALS: BP 115/49
--- NOTE | 2017-09-26 12:00 | NUR ---
CRUSHING FOREMAN NOTES DR ORNELAS MADE AWARE OF PATIENTS COFFEE GROUND EMESIS AND OCCULT FLUID ORDER. OK TO RESTART FEEDING PER DR ORNELAS.
[2017-09-26] MEDS ORDERED: NEUTRA PHOS 1 POWD.PACKET NG ONE (12:30)
[2017-09-26] MEDS: PANTOPRAZOLE 40 MG VIAL IV SCH ×2 (13:39→20:38)
[2017-09-26] MEDS: DIGOXIN INJ 0.5 MG/2 ML AMPUL IV SCH (13:40)
[2017-09-26 16:00] VITALS: BP 135/62
[2017-09-26] MEDS: VANCOMYCIN 1 GM in IV D5W 250 ML IV SCH (18:11)
--- NOTE | 2017-09-26 18:38 | NUR ---
GENERAL MACHINIST END NOTES PATIENT RESTING IN BED, ALL NEEDS MEET, WILL ENDORSE TO TRIM MACHINE ADJUSTER FOR CONTINUITY OF CARE.
[2017-09-26 20:00] VITALS: BP 110/51
[2017-09-26] MEDS: ENOXAPARIN SODIUM 30 MG/0.3 ML DISP.SYRIN SQ SCH (20:38)
[2017-09-27] VITALS: BP 136/57
[2017-09-27] MEDS: IPRATROPIUM NEB FS 0.5 MG/2.5 ML AMPUL.NEB NEB SCH ×4 (00:03→11:47)
[2017-09-27] MEDS: ALBUTEROL HALF STRENGTH 1.25 MG/3 ML VIAL.NEB NEB SCH ×4 (00:03→11:47)
[2017-09-27] MEDS: ACETYLCYSTEINE 10% SOLN 400 MG/4 ML VIAL NEB SCH ×2 (00:03→07:47)
[2017-09-27] MEDS: PIPERACILLIN /TAZOBACTAM 3.375 G in IV D5W 50 ML IV SCH ×3 (00:52→12:00)
[2017-09-27] MEDS: DILTIAZEM HCL 30 MG TABLET PO SCH ×3 (00:56→12:00)
[2017-09-27 04:00] VITALS: BP 138/53
--- NOTE | 2017-09-27 06:20 | NUR ---
RN CLOSING NOTES: MOSO4 DRIP TITRATED UP ORDERED TO KEEP PT COMFORTABLE & KEEP RR <20 BPM. PT IS UNAROUSABLE AT THIS TIME, NOTED AGONAL BREATHING, SC AT 88BPM UPON PALPATION. 0620h MOSO4 DRIP x 20 MG/HR. PT'S BREATHING STOPPED. VS UNAPPRECIATED. CN CALLED TIME OF AT THIS TIME. CN NOTIFIED DR. ORNELAS, ADMISSION & NRSG DRY CLEANING CHECKER ABOUT PT'S . CALLED [facility], SPOKE W/ KINSEY CASE# [id number]. PT'S NEPHEW STAS AT BEDSIDE. PER STAS, MORTUARY WILL COME TOMORROW & WILL BILL ADJUSTER PT FROM THE MORTUARY. RECORD OF WAS SIGNED BY STAS. SPECIAL ENDORSEMENT DONE TO PM RN RE: POST MORTEM CARE & PT'S NEPHEW (STAS) REQUEST TO KEEP THE ROSARY ON PT'S RIGHT HAND & BAPTIST SCAPULA ON LEFT HAND. Addendum: 09/27/17 at 1944 by JULIUS SORTO RN ERROR ON TIME, PLS DISREGARD.
--- NOTE | 2017-09-27 06:28 | NUR ---
RT NOTES PATIENT FOUND WITH LOW SPO2 AND TACHYPNEA.RESPIRATORY DISTRESS NOTED.PATIENT PLACED ON BIPAP PER MD ORDER.ALARMS ON AND AUDIBLE.AMBUBAG AT BEDSIDE.BIPAP PLUGGED ON RED OUTLET. Addendum: 09/27/17 at 0633 by PRIMO GARZA RT Amended: Links added.
--- NOTE | 2017-09-27 06:50 | NUR ---
RN NOTE PATIENT FOUND WITH LOW SPO2 84%AND TACHYPNEA, LABORED BREATHING. RESPIRATORY DISTRESS NOTED.PATIENT PLACED ON BIPAP PER MD ORDER.ALARMS ON AND AUDIBLE.AMBUBAG AT BEDSIDE.BIPAP PLUGGED ON RED OUTLET. NO RESPIRATORY DISTRESS NOTED AFTER PLACING ON BIPAP. SO2 99%, NO DISTRESS NOTED AT THIS TIME, CHARGE NURSE IS AWARE
--- NOTE | 2017-09-27 07:10 | NUR ---
RN INITIAL NOTES: REC'D PT ON BED, OBTUNDED, NOT IN ANY DISTRESS. ON BIPAP, SATING AT 100%. ON TELEMONITOR, CONTROLLED A.FIB W/ HR 79 BPM. HAS NGT ON LEFT NARES, PATENT & INTACT, GTF CLAMPED AT THIS TIME D/T EPISODE OF RESPIRATORY DISTRESS AT NIGHT. HAS FC PATENT & INTACT DRAINING TO BSB, YELLOWISH URINE OUTPUT. HAS 2 IV LINE ACCESS: RFA G22, SL, NOTED LEAKING & LFA G20, SL, PATENT & INTACT W/ NO S/SX OF INFECTION/INFILTRATION NOTED. PROVIDED COMFORT & SAFETY MEASURES. BED KEPT LOW & IN LOCKED POS. CALL LIGHT PLACED W/IN REACH. WILL CONT TO MONITOR & ATTEND PT NEEDS.
[2017-09-27 07:40] LABS: CARBON DIOXIDE 25 mmol/L (21-32); CHLORIDE 115 mmol/L (98-107); CREATININE 1.2 mg/dL (0.6-1.3); GLUCOSE 197 mg/dL (74-106); MAGNESIUM 2.2 mg/dL (1.8-2.4); PHOSPHORUS 3.9 mg/dL (2.5-4.9); POTASSIUM 4.2 mmol/L (3.5-5.1); SODIUM SERUM 149 mmol/L (136-145); UREA NITROGEN, BLOOD 34 mg/dL (7-18)
[2017-09-27 08:00] VITALS: BP 120/55
--- NOTE | 2017-09-27 08:00 | NUR ---
RN NOTES: ARIANE UPDATED DR. MCINTOSH ABOUT PT CONDITION W/ ORDERS TO HOLD GTF AT THIS TIME & MAY DO ABG.
[2017-09-27] MEDS: PANTOPRAZOLE 40 MG VIAL IV SCH (08:14)
[2017-09-27] MEDS: CARBIDOPA/LEVODOPA 25/100 MG 1 UDTAB PO SCH (08:14)
[2017-09-27] MEDS: CHOLECALCIFEROL 1,000 UNIT TABLET (VIT D3) PO SCH (08:14)
[2017-09-27] MEDS: DOCUSATE SODIUM 100 MG CAPSULE PO SCH (08:14)
[2017-09-27] MEDS: LEVETIRACETAM (250 MG) 250 MG TABLET PO SCH (08:15)
[2017-09-27] MEDS: LACTOBACILLUS RHAMNOSUS GG 1 EACH CAP.SPRINK PO SCH (08:15)
[2017-09-27] MEDS: LEVOTHYROXINE SODIUM 75 MCG TABLET PO SCH (08:15)
[2017-09-27] MEDS: TOPIRAMATE 25 MG TABLET PO SCH (08:15)
[2017-09-27 08:25] LABS: BASOPHILS % (AUTO) 0.1 % (0.0-2.0); EOSINOPHILS % (AUTO) 0.6 % (0.0-6.0); HEMATOCRIT 32 % (33-45); HEMOGLOBIN 10.5 g/dL (11.5-14.8); LYMPHOCYTES # (AUTO) 0.9 /CMM (0.8-4.8); LYMPHOCYTES % (AUTO) 6.7 % (20.0-44.0); MEAN CORPUSCULAR HGB CONC 33 g/dl (31.0-36.0); MEAN CORPUSCULAR VOLUME 91 fL (82-100); MONOCYTES # (AUTO) 0.7 /CMM (0.1-1.30); MONOCYTES % (AUTO) 5.3 % (2.0-12.0); NEUTROPHILS # (AUTO) 11.6 /CMM (1.8-8.9); NEUTROPHILS % (AUTO) 87.3 % (43.0-81.0); PLATELET COUNT (AUTO) 201 /CMM (150-450); RDW COEFFICIENT OF VARIATION 15.3 (11.5-15.0); RED BLOOD CELL COUNT(AUTO) 3.52 MIL/uL (4.0-5.2); WHITE BLOOD COUNT (AUTO) 13.3 K/uL (4.3-11.0)
[2017-09-27] MEDS: ACETAMINOPHEN 325 MG TABLET PO PRN (09:15)
--- NOTE | 2017-09-27 09:30 | NUR ---
RN NOTES: DR. MCINTOSH INFORMED ABOUT RE: FEVER 101.1. PER MD, OKAY TO DO PANCULTURE & HE NEEDS TO CONTACT PT'S NEPHEW REGARDING PT'S CURRENT CONDITION. TRIED SEVERAL TIMES CONTACTING JANETT BUT NO ONE IS ANSWERING. 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 DR. MCINTOSH INFORMED ABOUT THIS. Addendum: 09/27/17 at 1101 by JULIUS SORTO RN ADDENDUM: COOLING MEASURES RENDERED. TRIED GETTING SPUTUM SPECIMEN FOR CULTURE BUT SPUTUM IS NOT ENOUGH FOR THE TEST. WILL TRY AGAIN LATER. URINE SPECIMEN SENT FOR CULTURE.
[2017-09-27 12:00] VITALS: BP 114/60
[2017-09-27 12:07] LABS: ABG BASE EXCESS 0.3 mmol/L; ABG OXYGEN SATURATION 95.4 % (92.0-98.5); ABG PCO2 52.2 mmHg (35.0-45.0); ABG PH 7.328 (7.350-7.450); ABG PO2 86.1 mmHg (75.0-100.0); AaDO2 175.4 mmHg; COHb 0.7 % (0.5-1.5); MetHb 0.3 % (0.0-1.5); O2Hb 94.4 % (94.0-97.0); SITE, ABG Right Radial; VENT MODE, BG bipap15/5 ps 10
--- NOTE | 2017-09-27 12:30 | NUR ---
RN NOTES: FAMILY WAS ABLE TO TALK TO DR. MCINTOSH. DC ALL ACTIVE TX ORDERS. PT ON COMFORT MEASURES. FAMILY AT BEDSIDE RIGHT NOW.
[2017-09-27] MEDS ORDERED: MORPHINE SULFATE PF DRIP 250 MG in IV D5W 240 ML IV PRN (13:00)
[2017-09-27] MEDS ORDERED: LORAZEPAM INJ 2 MG/ML VIAL IV PRN (13:00)
[2017-09-27] MEDS ORDERED: KEY,NONCONTROL,TO KEEP IN PYXI 1 EA MC ONE ×2 (13:34→18:29)
--- NOTE | 2017-09-27 15:00 | NUR ---
RN NOTES: FAMILY IS REQUESTING IF THEY CAN TALK TO DR. MCINTOSH AGAIN AND IF MD CAN CALL PT'S RELATIVE WHO IS A DOCTOR. MD MADE AWARE. 1520h DR. MCINTOSH CAME & ABLE TO TALK TO THE FAMILY AT BEDSIDE. PER DR. MCINTOSH, MAY REMOVE BIPAP & NGT NOW. MD ORDERED TO GIVE ANOTHER DOSE OF ATIVAN 1MG 1V X1 AND MOSO4 4MG X1.
[2017-09-27] MEDS ORDERED: LORAZEPAM INJ 2 MG/ML VIAL IV ONE (15:30)
[2017-09-27] MEDS ORDERED: MORPHINE SULFATE INJ 4 MG/ML DISP.SYRIN IV ONE (16:00)
[2017-09-27] MEDS ORDERED: VANCOMYCIN 1 GM in IV D5W 250 ML IV SCH (18:00)
--- NOTE | 2017-09-27 18:20 | NUR ---
RN CLOSING NOTES: MOSO4 DRIP TITRATED UP ORDERED TO KEEP PT COMFORTABLE & KEEP RR <20 BPM. PT IS UNAROUSABLE AT THIS TIME, NOTED AGONAL BREATHING, CA AT 88BPM UPON PALPATION. 0620h MOSO4 DRIP x 20 MG/HR. PT'S BREATHING STOPPED. VS UNAPPRECIATED. CN CALLED TIME OF AT THIS TIME. CN NOTIFIED DR. ORNELAS, ADMISSION & NRSG CEO & FOUNDER ABOUT PT'S . CALLED [facility], SPOKE W/ KINSEY CASE# [id number]. PT'S NEPHEW STAS AT BEDSIDE. PER STAS, MORTUARY WILL COME TOMORROW & WILL HARD TILE SETTER APPRENTICE PT FROM THE MORTUARY. RECORD OF WAS SIGNED BY STAS. SPECIAL ENDORSEMENT DONE TO PM RN RE: POST MORTEM CARE & PT'S NEPHEW (STAS) REQUEST TO KEEP THE ROSARY ON PT'S RIGHT HAND & CONGREGATIONAL SCAPULA ON LEFT HAND.
--- NOTE | 2017-09-27 19:30 | NUR ---
RN NOTE POSTMORTEM CARE PROVIDED WITH A PULPIT OPERATOR ASSISSTANCE, IVS REMOVED, GUIDO CATH REMOVED, BODY CLEANED, ROSARY ON RIGHT HAND, SCAPULA ON THE LEFT HAND, TAG PLACED ON THE RIGHT TOE, PATIENT WAS TRANSFERRED SAFELY WITH AN ASSISSTANCE OF PULPIT OPERATOR AND SECURITY
== END 2017-09-27 18:20 | disposition expired | DRG 871 ==
LOC: ER 16:39 → TELE-TD 20:51 → TELE1 09-22 10:39 → TELE-TD 09-27 08:03 → MEDSG1 09-27 13:12 → UNDODISIN 09-27 16:20
PROVIDERS: ADMIT Internal Medicine; ATTEND Internal Medicine
PROC: 5A09357 Assistance with Respiratory Ventilation, Less than 24 Consecutive Hours, Continuous Positive Airway Pressure (ICD-10-PCS; principal; 2017-09-20)
PROC: 5A09357 Assistance with Respiratory Ventilation, Less than 24 Consecutive Hours, Continuous Positive Airway Pressure (ICD-10-PCS; 2017-09-27)
DX: A41.9 Sepsis, unspecified organism (principal); I21.A1 Myocardial infarction type 2; J69.0 Pneumonitis due to inhalation of food and vomit; J96.01 Acute respiratory failure with hypoxia; N17.0 Acute kidney failure with tubular necrosis; G92 Toxic encephalopathy; E87.0 Hyperosmolality and hypernatremia; D68.59 Other primary thrombophilia; N39.0 Urinary tract infection, site not specified; J98.11 Atelectasis; R13.10 Dysphagia, unspecified; E03.9 Hypothyroidism, unspecified; E78.5 Hyperlipidemia, unspecified; Z86.73 Personal history of transient ischemic attack (TIA), and cerebral infarction without residual deficits; F32.9 Major depressive disorder, single episode, unspecified; F41.9 Anxiety disorder, unspecified; G40.909 Epilepsy, unspecified, not intractable, without status epilepticus; I48.91 Unspecified atrial fibrillation; E87.6 Hypokalemia; B96.1 Klebsiella pneumoniae [K. pneumoniae] as the cause of diseases classified elsewhere; Z79.01 Long term (current) use of anticoagulants; Z66 Do not resuscitate; F02.80 Dementia in other diseases classified elsewhere, unspecified severity, without behavioral disturbance, psychotic disturbance, mood disturbance, and anxiety; M81.0 Age-related osteoporosis without current pathological fracture; Z51.5 Encounter for palliative care; G31.83 Neurocognitive disorder with Lewy bodies; I10 Essential (primary) hypertension; F09 Unspecified mental disorder due to known physiological condition; Z79.899 Other long term (current) drug therapy
CPT/HCPCS: 31720; 36415; 36600; 71045-TC; 71250-TC; 80048-TC; 80053-TC; 80076-TC; 80202-TC; 81000-TC; 82272-TC; 82803-TC; 83605-TC; 83735-TC; 84100-TC; 84439-TC; 84443-TC; 84484-TC; 85025-TC; 85730-TC; 87040-TC; 87081-TC; 87086-TC; 87186-TC; 92611-TC; 93307-TC; 94760-TC; 94762-TC; 94799-TC; A4606; C9113; J1160; J1650; J1940; J2060; J2270; J2274; J2543; J3370; J3480; J7030; J7050; J7060; Z7610